=== PATIENT | female | born 1950 | race Caucasian/White ===

== ENCOUNTER 2024-04-27 05:17 | Day surgery (SDC) | payer MEDICARE, OTHER ==
[2024-04-17 11:25] LABS: BASOPHILS # (AUTO) 0.1 X10'3 (0-0.2); BASOPHILS % (AUTO) 0.9 % (0-1); EOSINOPHILS # (AUTO) 0.3 X10'3 (0-0.9); EOSINOPHILS % (AUTO) 2.5 % (0-6); LYMPHOCYTES # (AUTO) 1.9 X10'3 (1.1-4.8); LYMPHOCYTES % (AUTO) 17.6 % (21-51); MEAN CORPUSCULAR HEMOGLOBIN 28.4 PG (27.0-31.0); MEAN CORPUSCULAR HGB CONC 33.1 g/dL (33.0-36.5); MEAN CORPUSCULAR VOLUME 85.7 FL (78-98); MEAN PLATELET VOLUME 8.6 FL (7.4-10.4); MONOCYTES # (AUTO) 0.6 X10'3 (0-0.9); MONOCYTES % (AUTO) 5.4 % (2-12); NEUTROPHILS # (AUTO) 8.1 X10'3 (1.8-7.7); NEUTROPHILS % (AUTO) 73.6 % (42-75); PRE OP HEMATOCRIT 44.5 % (35.0-45.0); PRE OP HEMOGLOBIN 14.8 g/dL (12.0-16.0); PRE OP PLATELET COUNT 332 X10'3 (140-440); RED CELL DISTRIBUTION WIDTH 15.5 % (11.5-14.5)
[2024-04-17 11:26] LABS: BILIRUBIN,URINE NEGATIVE (Neg); CLARITY,URINE CLOUDY (Clear); COLOR,URINE YELLOW (Yellow); GLUCOSE, URINE >=1000 mg/dl (Neg); KETONES,URINE NEGATIVE (Neg); LEUKOCYTE ESTERASE ,URINE TRACE (Neg); NITRITES, URINE NEGATIVE (Neg); OCCULT BLOOD,URINE TRACE-INTACT (Neg); PROTEIN,URINE >=300 mg/dl (Neg); UROBILINOGEN,URINE 0.2 E.U/dL (0.2-1.0)
[2024-04-17 11:29] LABS: UA COLLECTION TYPE NON-SPECIFIED
[2024-04-17 11:35] LABS: BACTERIA,URINE 2+ /HPF (Neg); RBC,URINE 0-2 /HPF (0-2); SQUAMOUS EPITHELIAL CELL,UR FEW /LPF (FEW); WBC,URINE 30-50 /HPF (0-4)
[2024-04-17 11:39] LABS: ALBUMIN 3.6 G/DL (3.4-5.0); ALBUMIN/GLOBULIN RATIO 0.8 (1.1-1.5); ALKALINE PHOSPHATASE 106 IU/L (46-116); BLOOD UREA NITROGEN 37 MG/DL (7-18); BUN/CREATININE RATIO 21.8 (10.0-20.0); CALCIUM 10.4 MG/DL (8.5-10.1); CHLORIDE 102 MMOL/L (99-107); PRE OP ALT 26 U/L (30-65); PRE OP ANION GAP 9 (8-16); PRE OP AST 11 U/L (10-37); PRE OP BILIRUB, TOTAL 0.5 MG/DL (0.0-1.0); PRE OP GLUCOSE 174 MG/DL (70-104); PRE OP SODIUM 141 MMOL/L (135-145); TOTAL CARBON DIOXIDE 29.8 MMOL/L (24-32); TOTAL PROTEIN 8.2 G/DL (6.4-8.2); eGFR 30 ML/MIN
[~2024-04-27] VITALS: Ht 152.4 cm; Wt 87.8 kg
[2024-04-27] VITALS (9 sets, daily range): BP systolic 116–150; BP diastolic 65–88; PULSE 60–78; RESP 12–19; TEMP 98; O2SAT 93–100
[~2024-04-27 05:17] MED LIST: AMLO10TA13 PO; B COMPLEX; DAPA10TA PO; DULO60CA65 PO; EVOL140P3 SQ; FINE10TA PO; LEVO137T19 PO; LOSA100T58 PO; METF-1203 PO; METO-411 PO; OMEG1CAP46 PO
[2024-04-27] MEDS: ceFAZolin 2gm in dextrose, iso 50 ML IV ONE (05:58)
[2024-04-27] MEDS: famotidine 20mg tablet PO ONE (06:17)
[2024-04-27] MEDS: DOCUMENT DATE & TIME OF BETA-BLOCKER PO ONE (06:18)
[2024-04-27] MEDS: ringers solution, lacted 1,000 ML IV SCH (06:18)
[2024-04-27] MEDS ORDERED: bacitracin 15gm ointment TP ONE (07:00)
[2024-04-27] MEDS ORDERED: BUPIVAcaine 2.5mg/ml inj 50ml vial (contains preservative) ONE (07:00)
[2024-04-27] MEDS ORDERED: BUPIVAcaine 0.5% inj/PF 30 ML ONE (07:13)
[2024-04-27] MEDS ORDERED: BUPIVAcaine/PF 2.5mg/ml (0.25%) 10ml vial ONE (07:13)
[2024-04-27] MEDS ORDERED: BUPIVACAINE liposomal/PF 13.3 MG/ML 10mL vial IM ONE (07:14)
[2024-04-27] MEDS ORDERED: desflurane 240ml liquid inh. IH ONE (07:17)
[2024-04-27] MEDS ORDERED: propofol inj 20 ML IV ONE (07:21)
[2024-04-27] MEDS ORDERED: LIDOcaine 2% (20mg/ml) 5ml vial ONE (07:21)
[2024-04-27] MEDS ORDERED: midazolam 1 mg/ML 2ml injection ONE (07:21)
[2024-04-27] MEDS ORDERED: ondansetron/PF 4mg/2ml inj ONE (07:21)
[2024-04-27] MEDS ORDERED: fentaNYL/PF 50MCG/1 ML 2ML syringe ONE (07:21)
[2024-04-27] MEDS ORDERED: ePHEDrine 50MG/ML INJ. ONE (07:51)
[2024-04-27] MEDS ORDERED: succinylcholine 20mg/ml inj IV ONE (07:51)
[2024-04-27] MEDS ORDERED: rocuronium 10mg/ml inj IV ONE (08:15)
[2024-04-27] MEDS: bacitracin 15gm ointment TP ONE (08:21)
[2024-04-27] MEDS ORDERED: enalaprilat 1.25mg/ml 2ml vial IV PRN (08:30)
[2024-04-27] MEDS ORDERED: ringers solution, lacted 1,000 ML IV SCH (08:30)
[2024-04-27] MEDS ORDERED: fentaNYL/PF 50MCG/1 ML 2ML syringe IV PRN ×2 (08:30)
[2024-04-27] MEDS ORDERED: morphine 4 MG/ML inj SYRINge IV PRN (08:30)
[2024-04-27] MEDS ORDERED: ondansetron/PF 4mg/2ml inj IV PRN (08:30)
[2024-04-27] MEDS ORDERED: morphine 2 MG/ML inj. syringe IV PRN (08:30)
[2024-04-27] MEDS: HYDROcodone/acetaminophen 5mg/325mg tablet PO ONE (10:50)
== END 2024-04-27 11:27 | disposition home or self-care (01) ==
LOC: PAS 05:17
PROVIDERS: ATTEND Podiatrist Foot & Ankle Surgery
DX: M19.071 Primary osteoarthritis, right ankle and foot (principal); M20.11 Hallux valgus (acquired), right foot; M25.471 Effusion, right ankle; M62.461 Contracture of muscle, right lower leg; M25.374 Other instability, right foot; E11.22 Type 2 diabetes mellitus with diabetic chronic kidney disease; I12.9 Hypertensive chronic kidney disease with stage 1 through stage 4 chronic kidney disease, or unspecified chronic kidney disease; N18.30 Chronic kidney disease, stage 3 unspecified; E03.9 Hypothyroidism, unspecified; E66.01 Morbid (severe) obesity due to excess calories; E78.5 Hyperlipidemia, unspecified; Z90.11 Acquired absence of right breast and nipple; Z98.51 Tubal ligation status; Z79.899 Other long term (current) drug therapy; Z98.890 Other specified postprocedural states; Z86.73 Personal history of transient ischemic attack (TIA), and cerebral infarction without residual deficits; Z68.37 Body mass index [BMI] 37.0-37.9, adult
CPT/HCPCS: 20902; 27687; 28297; 28730; 36415; 64445; 64447; 73620; 80053; 81001; 82948; 83036; 85025; 87088; A4215; A4618; A6222; A6223; A6253; A6402; A6449; A7000; C1713; J0330; J0666; J0690; J2003; J2250; J2405; J2704; J3010; J3490; J7030; J7120; Z7506; Z7508; Z7512; Z7610; 76000